=== PATIENT | male | born 1950 | race Caucasian/White ===

== ENCOUNTER → 2016-10-08 | Outpatient (CLI) | payer MEDICARE, OTHER ==
[~2016-10-08] MED LIST: ASPIRIN CHEWABL81 MG PO; CHLORTABS4 MG PO; COREG 12.5MG12.5 MG PO; DIGOXIN125 MCG PO; FUROSEMIDE20 MG PO; IBUPROFEN800 MG PO; LEVAQUIN500 MG PO; LIORESAL TAB 1010 MG PO; MULTIVITAMINS1 EAC1 PO; NEURONTIN 300300 MG PO; NITROSTAT0.4 MG SL; PLAQUENIL 200200 MG PO; PRAVASTATIN SOD40 MG PO; SPIRONOLACTONE25 MG PO; TYLENOL W/CODEIN1 E1 PO; ULTRAM50 MG PO; ZANTAC150 MG PO
[2016-10-08 14:33] LABS: RED BLOOD COUNT 4.45 M/UL (4.20-5.50); WHITE BLOOD COUNT 6.3 K/UL (4.5-11.0)
[2016-10-08 15:06] LABS: BUN/CREATININE RATIO 11 (0-10)
== END ==
LOC: LAB 13:03
PROVIDERS: Internal Medicine Cardiovascular Disease
DX: T82.198A Other mechanical complication of other cardiac electronic device, initial encounter (principal); I50.22 Chronic systolic (congestive) heart failure; I11.0 Hypertensive heart disease with heart failure; I25.5 Ischemic cardiomyopathy; I47.2 Ventricular tachycardia; Z79.899 Other long term (current) drug therapy
CPT/HCPCS: 36415; 71020; 80048; 80076; 84439; 84443; 84481; 85025

== ENCOUNTER → 2016-10-10 | Outpatient (CLI) | payer MEDICARE, OTHER | END | disposition home or self-care (01) | LOC: CATH 06:23 | DX: Z45.010 Encounter for checking and testing of cardiac pacemaker pulse generator [battery] (principal); I11.0 Hypertensive heart disease with heart failure; I50.22 Chronic systolic (congestive) heart failure; I47.2 Ventricular tachycardia; I44.7 Left bundle-branch block, unspecified; I25.5 Ischemic cardiomyopathy; E11.9 Type 2 diabetes mellitus without complications; F17.210 Nicotine dependence, cigarettes, uncomplicated; Z79.899 Other long term (current) drug therapy; Z79.82 Long term (current) use of aspirin; Z79.1 Long term (current) use of non-steroidal anti-inflammatories (NSAID); Z79.891 Long term (current) use of opiate analgesic; I25.10 Atherosclerotic heart disease of native coronary artery without angina pectoris; E78.5 Hyperlipidemia, unspecified; Z91.19 Patient's noncompliance with other medical treatment and regimen; Z95.5 Presence of coronary angioplasty implant and graft; I71.2 Thoracic aortic aneurysm, without rupture; Z91.041 Radiographic dye allergy status; Z85.51 Personal history of malignant neoplasm of bladder; L93.0 Discoid lupus erythematosus | CPT/HCPCS: 82962; 93641; C1882; J2250; J3010; J3370; J7040; J7050 ==

== ENCOUNTER → 2016-10-28 | Outpatient (CLI) | payer MEDICARE, OTHER | LOC: HEART 5 09:00 | DX: R06.02 Shortness of breath (principal); I47.2 Ventricular tachycardia; R94.2 Abnormal results of pulmonary function studies; Z79.899 Other long term (current) drug therapy; Z87.891 Personal history of nicotine dependence | CPT/HCPCS: 94060; 94729 ==

== ENCOUNTER → 2016-11-14 | Outpatient (CLI) | payer MEDICARE, OTHER | LOC: HEART 5 08:43 | DX: I20.9 Angina pectoris, unspecified (principal); M79.606 Pain in leg, unspecified ==